=== PATIENT | female | born 1960 | race Caucasian/White ===

== ENCOUNTER 2020-05-29 14:00 | Outpatient (RCR) | payer MEDICAID, SELFPAY | END 2020-05-31 15:22 | disposition other institution (70) | LOC: HO.PT 14:00 | PROVIDERS: Visit Provider Nurse Practitioner Family | DX: M54.2 Cervicalgia (principal); M79.601 Pain in right arm; R51.9 Headache, unspecified | CPT/HCPCS: 97110; 97140 ==

== ENCOUNTER 2020-07-18 14:00 | Outpatient (RCR) | payer MEDICAID, SELFPAY ==
[2020-06-14 11:06] VITALS: BP 139/77; PULSE 60
== END 2020-07-18 15:35 | disposition other institution (70) ==
LOC: HO.PT 14:00
PROVIDERS: Visit Provider Internal Medicine
DX: M54.5 Low back pain (principal); Z98.1 Arthrodesis status
CPT/HCPCS: 97110; 97140; 97161

== ENCOUNTER 2020-08-07 15:22 | Emergency (ER) | payer MEDICAID, SELFPAY ==
[2020-08-07 15:37] VITALS: PULSE 77; RESP 20; TEMP 36.4; O2SAT 100; BMI 55.8
[2020-08-07 17:57] LABS: Glucose, Whole Blood 342 mg/dL (60-115)
[2020-08-07 19:59] VITALS: BP 165/86; PULSE 61; RESP 15; O2SAT 98
[2020-08-07 20:01] LABS: Glucose, Whole Blood 258 mg/dL (60-115)
[2020-08-07 20:13] LABS: MANUAL DIFF FLAG NO
[2020-08-07 20:18] LABS: Basophils Percent Auto 0.5 % (0-2); Eosinophils Absolute Auto 0.2 X10*3/uL (0.0-0.4); Eosinophils Percent Auto 2.6 % (0-4); Hematocrit 41.8 % (37-47); Hemoglobin 13.5 g/dl (12.0-16.0); Imm Gran Abs Auto 0.01 X10*3/uL (0.00-0.03); Imm Gran Pct Auto 0.1 % (0.0-0.4); Lymphocytes Absolute Auto 3.9 X10*3/uL (1.2-4.9); Lymphocytes Percent Auto 47.7 % (20-40); Mean Corpuscular HGB Conc 32.3 g/dl (31.0-35.0); Mean Corpuscular Hemoglobin 28.5 pg (27.0-33.0); Mean Corpuscular Volume 88.4 fL (80-98); Mean Platelet Volume 12.3 fL (9.4-12.3); Monocytes Absolute Auto 0.6 X10*3/uL (0.1-1.2); Monocytes Percent Auto 7.4 % (2-11); Neutrophils Absolute Auto 3.4 X10*3/uL (2.0-8.3); Neutrophils Percent Auto 41.7 % (45-73); Platelet Count 253 X10*3/uL (160-400); Red Blood Count 4.73 X10*6/uL (4.20-5.50); Red Cell Distribution Width 12.7 % (11.0-16.0); White Blood Count 8.2 X10*3/uL (4.8-10.8)
[2020-08-07 20:41] LABS: Anion Gap 14 (12-20); Blood Urea Nitrogen 9 mg/dL (9-16); Calcium 8.9 mg/dL (8.4-10.2); Carbon Dioxide 27 mmol/L (22-29); Chloride 99 mmol/L (96-108); Creatinine Clr Calc Pharmacy 113.2; Estimated Glomerular Filt Rate > 60; Glucose Random 295 mg/dL (60-115); Sodium 136 mmol/L (135-145)
--- NOTE | 2020-08-07 21:12 | XR_ITS ---
EXAMINATION: XR CHEST CLINICAL INFORMATION: 60-year-old female with left posterior back pain. COMPARISON: Chest x-ray 09/25/2018 TECHNIQUE: Frontal view of the chest was obtained. FINDINGS: Cardiac silhouette is normal in size. The lungs are well aerated. There is no lobar consolidation. No pleural effusion or pneumothorax. Mild to moderate degenerative changes of the spine. XR/XR chest 1V IMPRESSION: Stable examination demonstrating no acute pulmonary pathology.
--- NOTE | 2020-08-07 21:13 | ED_ITS ---
HPI - General Adult General Chief complaint: Recheck/Abnormal Lab/Rx Stated complaint: high sugar Time Seen by Provider: 08/07/20 20:58 Source: patient Mode of arrival: ambulatory Limitations: no limitations History of Present Illness HPI narrative: Patient comes emergency room complaining of high blood sugar. Patient states she is asymptomatic. The patient states she was seen by her primary care physician earlier this week, she was told that her blood sugar was in the 400s. Patient is known to be type 2 diabetic, tries to control it with diet and exercise and metformin. Patient states she is not fully compliant with her metformin because it blows her stomach, metformin approximately 4 times a week. Patient states she has never had this sugars this high. Patient denies blurry vision, denies increase in thirst/urination. MD complaint: High blood sugar Related Data Previous Rx's Medication Instructions Recorded glimepiride 1 mg PO QAM #14 tab 08/07/20 Allergies Allergy/AdvReac Type Severity Reaction Status Date / Time morphine [MORPHINE] Allergy Intermediate VOMITING Unverified 04/26/20 15:45 lisinopril [LISINOPRIL] Allergy Unknown COUGH DRY Unverified 04/26/20 15:45 Motrin Allergy Unknown Uncoded 09/15/19 00:00 SEAFOOD Allergy Unknown FACIAL Uncoded 04/26/20 15:45 SWELLING Review of Systems Review of Systems: Constitutional : No Weight loss, No Fever, No Chills, No Night Sweats, No Fatigue, No Malaise ENT/Mouth : No Hearing loss, No Ear Pain, No Nasal Congestion, No Sinus Pain, No Hoarseness, No sore throat, No Rhinorrhea, No Swallowing Difficulty Eyes: No Eye Pain, No Swelling, No Redness, No Foreign Body, No Discharge, No Vision Changes Cardiovascular : No Chest Pain, No SOB, No Dyspnea on Exertion, No Orthopnea, No Edema, No Palpitations Respiratory : No Cough, No Sputum, No Wheezing, No Smoke Exposure, No Dyspnea Gastrointestinal : No Nausea, No Vomiting, No Diarrhea, No Constipation, No abdominal Pain, No Hematochezia, No Melena Genitourinary : no irregular bleeding, No Dysuria, No Urinary Frequency, No Hematuria, No Urinary Incontinence, No Urgency, No Flank Pain, No Urinary Flow Changes, No Hesitancy Musculoskeletal : No joint pain, No Myalgias, No Joint Swelling Skin : No Skin Lesions, No rash Neuro : No Weakness, No Numbness, No Paresthesias, No Loss of Consciousness, No Dizziness, No Headache Psych : No Anxiety/Panic, No Depression, No SI/HI/AH/VH, No Social Issues, Heme/Lymph: No Bruising, No Bleeding,No Lymphadenopathy Endocrine : No Polyuria, No Polydipsia, No Temperature Intolerance PMF Past Medical History Medical History Asthma Diabetes mellitus, type 2 Hypertension Social History Social History Alcohol intake: unknown Smoking Status: Unknown if ever smoked Use of substances other than those prescribed or required for medical reasons: No Advance Directives: Yes Advance Directives on File: Yes Advance Directives Date on File: 05/11/20 Physical Exam Vital Signs: Vital Signs: Last Vital Signs Temp 97.6 F 08/07/20 15:37 Pulse 59 08/07/20 22:00 Resp 15 08/07/20 22:00 BP 156/75 H 08/07/20 22:00 Pulse Ox 98 08/07/20 22:00 Body Mass Index 55.8 Appearance: Alert. Oriented X3. No acute distress. Eyes: Pupils equal, round and reactive to light. ENT: Pharynx normal. Neck: Normal inspection. Neck supple. No lymph nodes noted. No crepitus CVS: Normal heart rate and rhythm. Pulses normal. Normal S1 and S2 Respiratory: No respiratory distress. Breath sounds normal. No Wheezing. No rales Abdomen: Soft and nontender. No rigidity. No distention. good BS x4 Skin: Skin warm and dry. Normal skin color. Normal skin turgor. Extremities: No lower extremity edema. No lower extremity edema. No Lacerations. No Rash Neuro: Oriented X 3. No motor deficit. No sensory deficit. Moving all extermities. No slurred speech. Course Course Course Narrative: Patient was getting her fluids, patient states that she started feeling short of breath, having an asthma exacerbation which she has been having. Albuterol nebulization was provided. Wheezing is minimal, no steroids indicated at this time Patient's blood glucose 229, no longer having asthma exacerbation. Patient is not compliant with metformin due to the side effects. Discussed with the patient starting any medication oral, patient agrees Medical Decision Making Lab Data Result diagrams: 08/07/20 20:06 08/07/20 20:06 Labs: Lab Results 08/07/20 08/07/20 08/07/20 Range/Units 15:43 19:58 20:06 WBC 8.2 (4.8-10.8) X10*3/uL RBC 4.73 (4.20-5.50) X10*6/uL Hgb 13.5 (12.0-16.0) g/dl Hct 41.8 (37-47) % MCV 88.4 (80-98) fL MCH 28.5 (27.0-33.0) pg MCHC 32.3 (31.0-35.0) g/dl RDW 12.7 (11.0-16.0) % Plt Count 253 (160-400) X10*3/uL MPV 12.3 (9.4-12.3) fL Immature Gran % (Auto) 0.1 (0.0-0.4) % Neut % (Auto) 41.7 L (45-73) % Lymph % (Auto) 47.7 H (20-40) % [place] % (Auto) 7.4 (2-11) % Eos % (Auto) 2.6 (0-4) % Baso % (Auto) 0.5 (0-2) % Lymph # (Auto) 3.9 (1.2-4.9) X10*3/uL [place] # (Auto) 0.6 (0.1-1.2) X10*3/uL Eos # (Auto) 0.2 (0.0-0.4) X10*3/uL Baso # (Auto) 0.0 (0.0-0.2) X10*3/uL Abs Immat Gran (auto) 0.01 (0.00-0.03) X10*3/uL Absolute Neuts (auto) 3.4 (2.0-8.3) X10*3/uL Absolute Nucleated RBC 0.000 (0.0-0.012) X10*3/uL Nucleated RBC % (auto) 0.0 (0.0-0.2) /100WBC Sodium (135-145) mmol/L Potassium (3.3-5.1) mmol/l Chloride (96-108) mmol/L Carbon Dioxide (22-29) mmol/L Anion Gap (12-20) BUN (9-16) mg/dL Creatinine (0.5-1.4) mg/dL Estim Creat Clear Calc Estimated GFR POC Glucose 342 H 258 H (60-115) mg/dL Random Glucose (60-115) mg/dL Calcium (8.4-10.2) mg/dL Total Bilirubin (0.0-1.0) mg/dL Direct Bilirubin (0.0-0.5) mg/dL AST (5-31) U/L ALT (0-31) U/L Alkaline Phosphatase (39-117) U/L Total Protein (6.5-8.0) g/dL Albumin (3.5-5.0) g/dL 08/07/20 08/07/20 08/07/20 Range/Units 20:06 20:06 22:41 WBC (4.8-10.8) X10*3/uL RBC (4.20-5.50) X10*6/uL Hgb (12.0-16.0) g/dl Hct (37-47) % MCV (80-98) fL MCH (27.0-33.0) pg MCHC (31.0-35.0) g/dl RDW (11.0-16.0) % Plt Count (160-400) X10*3/uL MPV (9.4-12.3) fL Immature Gran % (Auto) (0.0-0.4) % Neut % (Auto) (45-73) % Lymph % (Auto) (20-40) % [place] % (Auto) (2-11) % Eos % (Auto) (0-4) % Baso % (Auto) (0-2) % Lymph # (Auto) (1.2-4.9) X10*3/uL [place] # (Auto) (0.1-1.2) X10*3/uL Eos # (Auto) (0.0-0.4) X10*3/uL Baso # (Auto) (0.0-0.2) X10*3/uL Abs Immat Gran (auto) (0.00-0.03) X10*3/uL Absolute Neuts (auto) (2.0-8.3) X10*3/uL Absolute Nucleated RBC (0.0-0.012) X10*3/uL Nucleated RBC % (auto) (0.0-0.2) /100WBC Sodium 136 137 (135-145) mmol/L Potassium 4.0 4.1 (3.3-5.1) mmol/l Chloride 99 99 (96-108) mmol/L Carbon Dioxide 27 27 (22-29) mmol/L Anion Gap 14 15 (12-20) BUN 9 10 (9-16) mg/dL Creatinine 0.81 0.82 (0.5-1.4) mg/dL Estim Creat Clear Calc 113.2 111.9 Estimated GFR > 60 > 60 POC Glucose 229 H (60-115) mg/dL Random Glucose 295 H 301 H (60-115) mg/dL Calcium 8.9 9.1 (8.4-10.2) mg/dL Total Bilirubin 0.6 (0.0-1.0) mg/dL Direct Bilirubin 0.2 (0.0-0.5) mg/dL AST 27 (5-31) U/L ALT 31 (0-31) U/L Alkaline Phosphatase 91 (39-117) U/L Total Protein 7.0 (6.5-8.0) g/dL Albumin 4.4 (3.5-5.0) g/dL Discharge Plan Discharge Clinical Impression: Acute hyperglycemia Asthma exacerbation Qualifiers: Asthma severity: unspecified severity Asthma persistence: unspecified Qualified Code(s): J45.901 - Unspecified asthma with (acute) exacerbation Patient Disposition: Home, Self-Care Instructions: Diabetic Hyperglycemia (ED), Diabetes and Exercise (ED) Additional Instructions: You need to have close follow-up with her primary care physician after starting this new medication for diabetes. Please follow-up with your primary care physician tomorrow. If you have any worsening or new symptoms, please return to the emergency room or call 911 Prescriptions: New glimepiride 1 mg tablet 1 mg PO QAM Qty: 14 RF: 0
[2020-08-07] MEDS: 0.9 % Sodium Chloride 1,000 ML 999 ML IVCONT (21:31)
[2020-08-07 21:32] VITALS: BP 157/81; PULSE 63; RESP 16; O2SAT 99
[2020-08-07] MEDS: Albuterol Sulfate (0.083%) 2.5 MG/3 ML VIAL.NEB INHALE (21:59)
[2020-08-07 22:00] VITALS: BP 156/75; PULSE 59; PULSE 63; RESP 15; O2SAT 98; O2SAT 99
[2020-08-07 22:46] LABS: Glucose, Whole Blood 229 mg/dL (60-115)
[2020-08-08 00:32] LABS: Acetone, serum QL Negative (Negative)
[2020-08-08 00:37] LABS: Alanine Aminotransferase 31 U/L (0-31); Albumin Level 4.4 g/dL (3.5-5.0); Alkaline Phosphatase 90 U/L (39-117); Aspartate Amino Transferase 27 U/L (5-31); Bilirubin Direct 0.2 mg/dL (0.0-0.5); Bilirubin Total 0.6 mg/dL (0.0-1.0)
== END 2020-08-07 23:46 | disposition home or self-care (01) ==
PROVIDERS: Emergency Provider Emergency Medicine
DX: E11.65 Type 2 diabetes mellitus with hyperglycemia (principal); J45.901 Unspecified asthma with (acute) exacerbation; I10 Essential (primary) hypertension; Z79.899 Other long term (current) drug therapy; Z79.84 Long term (current) use of oral hypoglycemic drugs
CPT/HCPCS: 36415; 71045; 80048; 80076; 82009; 82947; 85025; 94640; 96360; 99284

== ENCOUNTER 2020-11-06 14:00 | Outpatient (RCR) | payer MEDICAID, SELFPAY | END 2020-11-06 14:59 | disposition other institution (70) | LOC: HO.PT 14:00 | PROVIDERS: PCP Internal Medicine; Visit Provider Internal Medicine | DX: M54.12 Radiculopathy, cervical region (principal) | CPT/HCPCS: 97110; 97112; 97140; 97161 ==

== ENCOUNTER 2020-11-23 15:46 | Emergency (ER) | payer MEDICAID, SELFPAY ==
--- NOTE | ~2020-11-23 | CT_ITS ---
EXAMINATION: CT ABDOMEN AND PELVIS WITHOUT CONTRAST CLINICAL INFORMATION: Right-sided flank pain COMPARISON: None TECHNIQUE: Multidetector volumetric imaging was performed from the superior aspect of the liver through the pubic symphysis. Sagittal and coronal reformatted images were obtained on the technologist's workstation. This CT examination was performed using dose optimization techniques as appropriate, variously including the following: *Automated exposure control *Adjustment of mA and/or kV according to patient size (this includes techniques or standardized protocols for targeted exams where dose is matched to indication/reason for exam; i.e. extremities or head) *Use of iterative reconstruction technique DLP: 533 mGy-cm FINDINGS: LUNG BASES: Tree-in-bud changes are present posteriorly in the left lower lobe consistent with small airway/inflammatory disease. LIVER, GALLBLADDER, AND BILIARY TREE: The liver is normal in size, shape, and attenuation. No focal hepatic lesion or biliary ductal dilatation is present. The gallbladder is contracted but otherwise unremarkable with no evidence of radiopaque gallstones, gallbladder wall thickening, or obvious pericholecystic inflammatory changes. PANCREAS: Unremarkable. SPLEEN: Unremarkable. A tiny splenule is seen. ADRENAL GLANDS: Unremarkable. KIDNEYS AND URETERS: The kidneys are normal in size, shape, and attenuation. A large right renal pelvic stone present measuring 1.8 x 1.0 x 1.7 cm. The stone measures 1026 Hounsfield units and is 7.7 cm from the posterior axillary line. There is a tiny punctate calcification in the bladder wall measuring possibly 1 mm in size. It is possible that this could be a distal ureteral stone although it appears a bit too low in the ureter is not dilated. No Hydronephrosis, hydroureter, or other calculi seen. No perinephric stranding. BLADDER: Unremarkable. GASTROINTESTINAL TRACT: A small hiatal hernia is present. Diverticular changes are present in the colon without diverticulitis. The small and large bowel are unremarkable. The appendix is unremarkable. ABDOMINAL WALL: No significant hernia is appreciated. LYMPH NODES: Normal. VASCULAR: Calcific atherosclerotic changes present without aneurysm PELVIC VISCERA: Surgically absent OSSEOUS STRUCTURES: Extensive prior lumbar surgery with fixation from L3 through S1 with interbody distal physis at each level along with a bone graft posteriorly. CT/CT abdomen pelvis wo con IMPRESSION: 1. Large right renal pelvic stone. 2. Questionable tiny punctate density at right UVJ 3. Incidental note made of tree-in-bud inflammatory changes left lung base, small hiatal hernia, postoperative changes in the spine and colonic diverticulosis.
[2020-11-23 15:49] VITALS: BP 153/74; PULSE 75; RESP 18; TEMP 37; O2SAT 100; BMI 24.5
--- NOTE | 2020-11-23 17:16 | ED_ITS ---
HPI - Abdominal Pain General Chief Complaint: Abdominal Pain Stated Complaint: Flank pain Source: patient Mode of arrival: ambulatory Limitations: no limitations History of Present Illness HPI narrative: 60-year-old female with past medical history of kidney stones, asthma, type 2 diabetes, and hypertension presents with several days of right- sided flank pain with hematuria. States it feels like her prior kidney stone. She presents to the emergency department with a note from [facility] from April of 2020 indicating a 1 cm stone to the right kidney. She does not report any fevers or chills, denies chest pain and pressure, palpitations, shortness of breath, shortness of breath on exertion, abdominal distention, nausea, vomiting, diarrhea, constipation, and edema. Related Data Previous Rx's Medication Instructions Recorded glimepiride 1 mg PO QAM #14 tab 08/07/20 cefuroxime axetil 500 mg PO Q12H 10 Days #20 tab 11/23/20 ketorolac 10 mg PO Q6H 5 Days #20 tab 11/23/20 phenazopyridine [Pyridium] 200 mg PO TID PRN #6 tab 11/23/20 Allergies Allergy/AdvReac Type Severity Reaction Status Date / Time morphine [MORPHINE] Allergy Intermediate VOMITING Unverified 04/26/20 15:45 lisinopril [LISINOPRIL] Allergy Unknown COUGH DRY Unverified 04/26/20 15:45 Motrin Allergy Unknown Uncoded 09/15/19 00:00 SEAFOOD Allergy Unknown FACIAL Uncoded 04/26/20 15:45 SWELLING Review of Systems Review of Systems Constitutional: No Fever, No Chills ENT/Mouth: No sore throat Eyes: No Eye Pain, No Swelling, No Redness Cardiovascular: No Chest Pain, No SOB Respiratory: No Cough, No Sputum, No Wheezing Gastrointestinal: positive Nausea, no Vomiting, No Diarrhea, positive abdominal pain Genitourinary: No Dysuria, no urinary frequency, no Hematuria, positive Flank Pain, no hesitancy Musculoskeletal: No joint pain, No Myalgias Skin: No Skin Lesions, No rash Neuro: No Weakness, No Numbness, No Headache Psych: No Anxiety/Panic, No Depression Heme/Lymph: No Bruising, No Lymphadenopathy Endocrine: No Polyuria, No Polydipsia Yes all other systems are reviewed and are negative Physical Exam Vital Signs: Vital Signs: Last Vital Signs Temp 98.3 F 11/23/20 17:19 Pulse 62 11/23/20 21:51 Resp 18 11/23/20 21:51 BP 149/80 H 11/23/20 21:51 Pulse Ox 100 11/23/20 20:31 Body Mass Index 24.5 Appearance: Alert. Oriented X3. Mild distress. Eyes: Pupils equal, round and reactive to light. ENT: Pharynx normal. Neck: Normal inspection. Neck supple. CVS: Normal heart rate and rhythm. Pulses normal. Respiratory: No respiratory distress. Breath sounds normal. Abdomen: Soft and tender to palpation to the right upper quadrant, positive CVA tenderness on the right side. Skin: Skin warm and dry. Normal skin color. Normal skin turgor. Extremities: No lower extremity edema. Moves all extremities against resistance, strength 5/5. Neuro: No motor deficit. No sensory deficit. Cranial nerves 2-12 intact, no focal neural deficits. Course Course Course Narrative: 60-year-old female with past medical history of kidney stone presents with right flank pain. Will order CT scan, CBC, Chem 7, urinalysis. Patient also request to speak to case management, states that she lives near drug dealers, and is having a difficult time managing stress. She does not report suicidal ideation, homicidal ideation, or any other concerning psychiatric symptoms. Case management discussed living situation with patient, not much can be offered at this time except for the suggestion of moving. Urinalysis indicates UTI, CT scan shows kidney stone without pylori or hydro nephrosis. Stone is too large to pass, will refer to Urology. Patient prefers a female provider, will refer to [facility] as they do have several female urologist on staff. Patient verbalized understanding of and agrees to plan of care discharge home. MDM - Abdominal Pain Differential Diagnosis Differential diagnosis: Likely abdominal pain, acute appendicitis and calculus of kidney Medical Records Attestation: I reviewed the patient's medical records. Lab Data Attestation: I reviewed the patient's lab results. Result diagrams: 11/23/20 17:42 11/23/20 17:42 Labs: Lab Results 11/23/20 11/23/20 11/23/20 Range/Units 17:42 17:42 17:48 WBC 9.1 (4.8-10.8) X10*3/uL RBC 4.64 (4.20-5.50) X10*6/uL Hgb 13.4 (12.0-16.0) g/dl Hct 41.2 (37-47) % MCV 88.8 (80-98) fL MCH 28.9 (27.0-33.0) pg MCHC 32.5 (31.0-35.0) g/dl RDW 13.2 (11.0-16.0) % Plt Count 255 (160-400) X10*3/uL MPV 12.1 (9.4-12.3) fL Immature Gran % (Auto) 0.1 (0.0-0.4) % Neut % (Auto) 50.3 (45-73) % Lymph % (Auto) 39.8 (20-40) % [place] % (Auto) 7.1 (2-11) % Eos % (Auto) 2.2 (0-4) % Baso % (Auto) 0.5 (0-2) % Lymph # (Auto) 3.6 (1.2-4.9) X10*3/uL [place] # (Auto) 0.7 (0.1-1.2) X10*3/uL Eos # (Auto) 0.2 (0.0-0.4) X10*3/uL Baso # (Auto) 0.1 (0.0-0.2) X10*3/uL Abs Immat Gran (auto) 0.01 (0.00-0.03) X10*3/uL Absolute Neuts (auto) 4.6 (2.0-8.3) X10*3/uL Absolute Nucleated RBC 0.000 (0.0-0.012) X10*3/uL Nucleated RBC % (auto) 0.0 (0.0-0.2) /100WBC Hold Blue Top SEE NOTE Sodium 145 (135-145) mmol/L Potassium 3.9 (3.3-5.1) mmol/L Chloride 106 (96-108) mmol/L Carbon Dioxide 30 H (22-29) mmol/L Anion Gap 13 (12-20) BUN 15 D (9-16) mg/dL Creatinine 0.77 (0.5-1.4) mg/dL Estim Creat Clear Calc 71.8 Estimated GFR > 60 Random Glucose 85 D (60-115) mg/dL Calcium 9.6 D (8.4-10.2) mg/dL Total Bilirubin 0.6 (0.0-1.0) mg/dL Direct Bilirubin 0.2 (0.0-0.5) mg/dL AST 19 (5-31) U/L ALT 15 (0-31) U/L Alkaline Phosphatase 66 D (39-117) U/L Total Protein 6.9 (6.5-8.0) g/dL Albumin 4.6 (3.5-5.0) g/dL Lipase 51 (8-78) U/L Urine Color Urine Appearance Urine pH (5.0-8.0) Ur Specific [place] (1.005-1.025) Urine Protein (NEG-TRACE) MG/DL Urine Glucose (UA) (NEG) MG/DL Urine Ketones (NEG) MG/DL Urine Blood (NEG) Urine Nitrite (NEG) Ur Leukocyte Esterase (NEG) Urine RBC (0) /HPF Urine WBC (0-4) /HPF Ur Squamous Epith Cells /LPF Urine Bacteria /LPF 11/23/20 Range/Units 17:48 WBC (4.8-10.8) X10*3/uL RBC (4.20-5.50) X10*6/uL Hgb (12.0-16.0) g/dl Hct (37-47) % MCV (80-98) fL MCH (27.0-33.0) pg MCHC (31.0-35.0) g/dl RDW (11.0-16.0) % Plt Count (160-400) X10*3/uL MPV (9.4-12.3) fL Immature Gran % (Auto) (0.0-0.4) % Neut % (Auto) (45-73) % Lymph % (Auto) (20-40) % [place] % (Auto) (2-11) % Eos % (Auto) (0-4) % Baso % (Auto) (0-2) % Lymph # (Auto) (1.2-4.9) X10*3/uL [place] # (Auto) (0.1-1.2) X10*3/uL Eos # (Auto) (0.0-0.4) X10*3/uL Baso # (Auto) (0.0-0.2) X10*3/uL Abs Immat Gran (auto) (0.00-0.03) X10*3/uL Absolute Neuts (auto) (2.0-8.3) X10*3/uL Absolute Nucleated RBC (0.0-0.012) X10*3/uL Nucleated RBC % (auto) (0.0-0.2) /100WBC Hold Blue Top Sodium (135-145) mmol/L Potassium (3.3-5.1) mmol/L Chloride (96-108) mmol/L Carbon Dioxide (22-29) mmol/L Anion Gap (12-20) BUN (9-16) mg/dL Creatinine (0.5-1.4) mg/dL Estim Creat Clear Calc Estimated GFR Random Glucose (60-115) mg/dL Calcium (8.4-10.2) mg/dL Total Bilirubin (0.0-1.0) mg/dL Direct Bilirubin (0.0-0.5) mg/dL AST (5-31) U/L ALT (0-31) U/L Alkaline Phosphatase (39-117) U/L Total Protein (6.5-8.0) g/dL Albumin (3.5-5.0) g/dL Lipase (8-78) U/L Urine Color STRAW Urine Appearance CLEAR Urine pH 6.5 (5.0-8.0) Ur Specific Mon[place] <= 1.005 (1.005-1.025) Urine Protein NEG (NEG-TRACE) MG/DL Urine Glucose (UA) NEG (NEG) MG/DL Urine Ketones NEG (NEG) MG/DL Urine Blood 2+ H (NEG) Urine Nitrite NEG (NEG) Ur Leukocyte Esterase TRACE H (NEG) Urine RBC 5-9 H (0) /HPF Urine WBC 0-2 (0-4) /HPF Ur Squamous Epith Cells NONE /LPF Urine Bacteria 1+ /LPF Imaging Data CT scan - abdomen: Attestation: I personally reviewed and interpreted this imaging study as follows: Radiologist's impression: EXAMINATION: CT ABDOMEN AND PELVIS WITHOUT CONTRAST CLINICAL INFORMATION: Right-sided flank pain COMPARISON: None TECHNIQUE: Multidetector volumetric imaging was performed from the superior aspect of the liver through the pubic symphysis. Sagittal and coronal reformatted images were obtained on the technologist's workstation. This CT examination was performed using dose optimization techniques as appropriate, variously including the following: *Automated exposure control *Adjustment of mA and/or kV according to patient size (this includes techniques or standardized protocols for targeted exams where dose is matched to indication/reason for exam; i.e. extremities or head) *Use of iterative reconstruction technique DLP: 533 mGy-cm FINDINGS: LUNG BASES: Tree-in-bud changes are present posteriorly in the left lower lobe consistent with small airway/inflammatory disease. LIVER, GALLBLADDER, AND BILIARY TREE: The liver is normal in size, shape, and attenuation. No focal hepatic lesion or biliary ductal dilatation is present. The gallbladder is contracted but otherwise unremarkable with no evidence of radiopaque gallstones, gallbladder wall thickening, or obvious pericholecystic inflammatory changes. PANCREAS: Unremarkable. SPLEEN: Unremarkable. A tiny splenule is seen. ADRENAL GLANDS: Unremarkable. KIDNEYS AND URETERS: The kidneys are normal in size, shape, and attenuation. A large right renal pelvic stone present measuring 1.8 x 1.0 x 1.7 cm. The stone measures 1026 Hounsfield units and is 7.7 cm from the posterior axillary line. There is a tiny punctate calcification in the bladder wall measuring possibly 1 mm in size. It is possible that this could be a distal ureteral stone although it appears a bit too low in the ureter is not dilated. No Hydronephrosis, hydroureter, or other calculi seen. No perinephric stranding. BLADDER: Unremarkable. GASTROINTESTINAL TRACT: A small hiatal hernia is present. Diverticular changes are present in the colon without diverticulitis. The small and large bowel are unremarkable. The appendix is unremarkable. ABDOMINAL WALL: No significant hernia is appreciated. LYMPH NODES: Normal. VASCULAR: Calcific atherosclerotic changes present without aneurysm PELVIC VISCERA: Surgically absent OSSEOUS STRUCTURES: Extensive prior lumbar surgery with fixation from L3 through S1 with interbody distal physis at each level along with a bone graft posteriorly. CT/CT abdomen pelvis wo con IMPRESSION: 1. Large right renal pelvic stone. 2. Questionable tiny punctate density at right UVJ 3. Incidental note made of tree-in-bud inflammatory changes left lung base, small hiatal hernia, postoperative changes in the spine and colonic diverticulosis. Discharge Plan Discharge Clinical Impression: Calculus of kidney, UTI (urinary tract infection) Patient Disposition: Home, Self-Care Instructions: Kidney Stones (ED), Urinary Tract Infection in Women (ED), Flank Pain (ED) Additional Instructions: You were evaluated for right flank pain. You have a large kidney stone in the right kidney. There is no indication of infection in this kidney or obstruction. Please follow-up with Urology. The number for [facility] urology group is [phone]. Please ask for a female provider. We prescribed Toradol, please take this medication as directed. Do not take Aleve or Motrin with this medication. Motrin is the same medication as ibuprofen and Advil. We are treating for urinary tract infection with cefuroxime. Please take this medication as directed. Complete the entire course of this medicine. We prescribed Pyridium to help with bladder spasms. This medication will turn your urine bright orange, this is a normal side effect of this medication. Thank you for choosing this emergency department for evaluation. Please follow-up with primary care physician as needed. Return to the emergency department for any new, concerning, or worsening symptoms. Prescriptions: New ketorolac 10 mg tablet 10 mg PO Q6H 5 Days Qty: 20 RF: 0 cefuroxime axetil 500 mg tablet 500 mg PO Q12H 10 Days Qty: 20 RF: 0 phenazopyridine [Pyridium] 200 mg tablet 200 mg PO TID PRN (Reason: pain) Qty: 6 RF: 0 No Action glimepiride 1 mg tablet 1 mg PO QAM Qty: 14 RF: 0 Interventions: ED Discharge Assessment Last Done: 11/23/20 21:59 Discharge Date/Time: 11/23/20 22:00 [facility] Past Medical History Attestation statement: The following information was validated with the patient. Source: old records reviewed Medical History Asthma Diabetes mellitus, type 2 Hypertension Social History Social History Alcohol intake: never Smoking Status: Never smoker Use of substances other than those prescribed or required for medical reasons: No Advance Directives: Yes Advance Directives on File: Yes Advance Directives Date on File: 05/11/20
[2020-11-23 17:19] VITALS: BP 148/74; PULSE 57; RESP 17; TEMP 36.8; O2SAT 99
[2020-11-23 17:50] LABS: MANUAL DIFF FLAG NO
[2020-11-23 17:55] LABS: Basophils Absolute Auto 0.1 X10*3/uL (0.0-0.2); Basophils Percent Auto 0.5 % (0-2); Eosinophils Absolute Auto 0.2 X10*3/uL (0.0-0.4); Eosinophils Percent Auto 2.2 % (0-4); Hematocrit 41.2 % (37-47); Hemoglobin 13.4 g/dl (12.0-16.0); Imm Gran Abs Auto 0.01 X10*3/uL (0.00-0.03); Imm Gran Pct Auto 0.1 % (0.0-0.4); Lymphocytes Absolute Auto 3.6 X10*3/uL (1.2-4.9); Lymphocytes Percent Auto 39.8 % (20-40); Mean Corpuscular HGB Conc 32.5 g/dl (31.0-35.0); Mean Corpuscular Hemoglobin 28.9 pg (27.0-33.0); Mean Corpuscular Volume 88.8 fL (80-98); Mean Platelet Volume 12.1 fL (9.4-12.3); Monocytes Absolute Auto 0.7 X10*3/uL (0.1-1.2); Monocytes Percent Auto 7.1 % (2-11); Neutrophils Absolute Auto 4.6 X10*3/uL (2.0-8.3); Neutrophils Percent Auto 50.3 % (45-73); Platelet Count 255 X10*3/uL (160-400); Red Blood Count 4.64 X10*6/uL (4.20-5.50); Red Cell Distribution Width 13.2 % (11.0-16.0); White Blood Count 9.1 X10*3/uL (4.8-10.8)
[2020-11-23] MEDS: 0.9 % Sodium Chloride 1,000 ML 999 ML IVCONT (17:55)
--- NOTE | 2020-11-23 17:57 | PC.NURSE ---
Pt alert and oriented, skin pink and warm, BS active x4. Pt reports left flank pain that has being going on x1 month; has taken multiple OTC pain meds with no effect. Pt reports having kidney stones in the past and feels like she currently has another one. Pt awaiting CT scan.
[2020-11-23 18:01] LABS: Glucose Urine UA NEG (NEG); Leukocyte Esterase Urine TRACE (NEG); Nitrite Urine NEG (NEG); PH 6.5 (5.0-8.0); Specific Gravity - Urine <= 1.005 (1.005-1.025); UACC Culture Trigger YES; Urine Blood 2+ (NEG); Urine Ketones NEG (NEG); Urine Protein NEG (NEG-TRACE)
[2020-11-23 18:04] LABS: Appearance Urine CLEAR; Color Urine STRAW
[2020-11-23 18:06] LABS: Bacteria Urine 1+ /LPF; WBC Urine 0-2 /HPF (0-4)
[2020-11-23 18:22] LABS: Alanine Aminotransferase 15 U/L (0-31); Albumin Level 4.6 g/dL (3.5-5.0); Alkaline Phosphatase 66 U/L (39-117); Anion Gap 13 (12-20); Aspartate Amino Transferase 19 U/L (5-31); Bilirubin Direct 0.2 mg/dL (0.0-0.5); Bilirubin Total 0.6 mg/dL (0.0-1.0); Blood Urea Nitrogen 15 mg/dL (9-16); Calcium 9.6 mg/dL (8.4-10.2); Carbon Dioxide 30 mmol/L (22-29); Chloride 106 mmol/L (96-108); Creatinine Clr Calc Pharmacy 71.8; Estimated Glomerular Filt Rate > 60; Glucose Random 85 mg/dL (60-115); Lipase 51 U/L (8-78); Potassium 3.9 mmol/L (3.3-5.1); Sodium 145 mmol/L (135-145); Total Protein 6.9 g/dL (6.5-8.0)
[2020-11-23 19:26] VITALS: BP 140/79; PULSE 60; RESP 16; O2SAT 100
[2020-11-23] MEDS: Ketorolac Tromethamine 30 MG/ML VIAL IVPUSH (20:09)
[2020-11-23 20:31] VITALS: BP 140/81; PULSE 63; RESP 16; O2SAT 100
--- NOTE | 2020-11-23 20:35 | MHC.CM.ED ---
CM reviewed and completed HCP per pt request. Uploaded in [employer] and [employer].
[2020-11-23 21:51] VITALS: BP 149/80; PULSE 62; RESP 18
[2020-11-23] MEDS: Phenazopyridine HCL 200 MG TABLET PO (21:53)
== END 2020-11-23 22:00 | disposition home or self-care (01) ==
PROVIDERS: Nurse Practitioner Family; Emergency Provider Internal Medicine; PCP Internal Medicine
DX: N20.0 Calculus of kidney (principal); N39.0 Urinary tract infection, site not specified; E11.9 Type 2 diabetes mellitus without complications; I10 Essential (primary) hypertension; J45.909 Unspecified asthma, uncomplicated; Z87.442 Personal history of urinary calculi; R93.5 Abnormal findings on diagnostic imaging of other abdominal regions, including retroperitoneum; K44.9 Diaphragmatic hernia without obstruction or gangrene; K57.30 Diverticulosis of large intestine without perforation or abscess without bleeding
CPT/HCPCS: 36415; 74176; 80048; 80076; 81001; 81003; 83690; 85025; 87086; 96361; 96374; 99284; J1885

== ENCOUNTER 2022-04-23 14:00 | Outpatient (RCR) | payer MEDICAID, SELFPAY | END 2022-04-23 15:38 | disposition home or self-care (01) | LOC: HO.PT 14:00 | PROVIDERS: PCP Internal Medicine; Visit Provider Internal Medicine | DX: M54.6 Pain in thoracic spine (principal) | CPT/HCPCS: 97110; 97140; 97162 ==

== ENCOUNTER 2022-06-17 12:32 | Emergency (ER) | payer MEDICAID, SELFPAY ==
[2022-06-17 13:25] VITALS: BP 177/83; PULSE 51; RESP 20; TEMP 36.4; O2SAT 100; BMI 24.0
--- NOTE | 2022-06-17 13:26 | ED_ITS ---
HPI - Asthma General Chief Complaint: Asthma Stated Complaint: Asthma [id number] Time Seen by Provider: 06/17/22 13:26 History of Present Illness HPI Narrative: patient with Asthma been complaining of shortness of breath for 1 month using her inhaler without much response yesterday patient noticed carbon monoxide alarm went off. No headache no nausea no vomiting no chest pain no leg swelling no other family member sick Related Data Previous Rx's Medication Instructions Recorded glimepiride 1 mg tablet 1 mg PO QAM #14 tabs 08/07/20 cefuroxime axetil 500 mg tablet 500 mg PO Q12H 10 days #20 tabs 11/23/20 ketorolac 10 mg tablet 10 mg PO Q6H 5 days #20 tabs 11/23/20 phenazopyridine 200 mg tablet 200 mg PO TID PRN pain 6 doses #6 11/23/20 (Pyridium) tabs albuterol sulfate 90 mcg/actuation 2 puff inhalation Q4-6H PRN 06/17/22 aerosol inhaler (ProAir HFA) shortness of breath or wheezing #8.5 grams prednisone 20 mg tablet 40 mg PO DAILY #10 tabs 06/17/22 Allergies Allergy/AdvReac Type Severity Reaction Status Date / Time morphine [MORPHINE] Allergy Intermediate VOMITING Unverified 04/26/20 15:45 lisinopril [LISINOPRIL] Allergy Unknown COUGH DRY Unverified 04/26/20 15:45 Motrin Allergy Unknown Uncoded 09/15/19 00:00 SEAFOOD Allergy Unknown FACIAL Uncoded 04/26/20 15:45 SWELLING Review of Systems Review of Systems: Yes all other systems are reviewed and are negative PMFSH Past Medical History Medical History Asthma Diabetes mellitus, type 2 Hypertension Social History Social History Alcohol intake: never Advance Directives: Yes Advance Directives on File: Yes Advance Directives Date on File: 11/23/20 Physical Exam 2 Vital Signs: Vital Signs: Last Vital Signs Temp 97.6 F 06/17/22 13:25 Pulse 51 06/17/22 13:25 Resp 20 06/17/22 13:25 BP 177/83 H 06/17/22 13:25 Pulse Ox 100 06/17/22 13:25 O2 Del Method 06/17/22 13:25 BMI result Body Mass Index 24.0 Appearance: Alert. Oriented X3. No acute distress. ENT: Pharynx normal. Oral Mucosa moist Neck: Normal inspection. Neck supple. CVS: Normal heart rate and rhythm. Pulses normal. Respiratory: No respiratory distress. Equal air entry bilateral, prolonged expiration Abdomen: Soft and nontender. Bowel sounds are present, Skin: Skin warm and dry. Normal skin color. Normal skin turgor. Extremities: No lower extremity edema. No calf tenderness Neuro: Oriented X 3. MDM - Asthma MDM Narrative Medical decision making narrative: Patient with asthma with increased cough and wheezing vitals stable for discharge patient home on prednisone. Discharge Plan Discharge Clinical Impression: Asthma Patient Disposition: Home, Self-Care Instructions: Asthma (ED) Additional Instructions: Use the inhaler that advice Prednisone as prescribed. Follow-up with your PCP Prescriptions: New albuterol sulfate [ProAir HFA] 90 mcg/actuation HFA aerosol inhaler 2 puff inhalation Q4-6H PRN (Reason: shortness of breath or wheezing) Qty: 8.5 0RF prednisone 20 mg tablet 40 mg PO DAILY Qty: 10 0RF No Action glimepiride 1 mg tablet 1 mg PO QAM Qty: 14 0RF Rx Instructions: administer with breakfast ketorolac 10 mg tablet 10 mg PO Q6H 5 Days Qty: 20 0RF cefuroxime axetil 500 mg tablet 500 mg PO Q12H 10 Days Qty: 20 0RF phenazopyridine [Pyridium] 200 mg tablet 200 mg PO TID PRN (Reason: pain) Qty: 6 0RF Interventions: ED Discharge Assessment Last Done: 06/17/22 13:34 Discharge Date/Time: 06/17/22 13:38
== END 2022-06-17 13:38 | disposition home or self-care (01) ==
PROVIDERS: Emergency Provider Internal Medicine; PCP Internal Medicine
DX: J45.909 Unspecified asthma, uncomplicated (principal)
CPT/HCPCS: 99282; 99283

== ENCOUNTER 2022-11-25 12:23 | Emergency (ER) | payer OTHER, SELFPAY ==
--- NOTE | ~2022-11-25 | US_ITS ---
EXAMINATION: LEFT LOWER EXTREMITY DEEP VENOUS ULTRASOUND CLINICAL INFORMATION: Left lower extremity pain. COMPARISON: None. TECHNIQUE: Duplex Doppler imaging with compression maneuvers were performed of the left lower extremity deep venous system. FINDINGS: The visualized common femoral, femoral and popliteal veins demonstrate normal compressibility and color flow without evidence of venous thrombosis. Visualized portions of the calf veins demonstrate normal color fill-in suggesting patency. There is no evidence of a Radford's cyst. US/US venous duplex LE LT IMPRESSION: No evidence of deep venous thrombosis involving the left lower extremity.
--- NOTE | ~2022-11-25 | XR_ITS ---
EXAMINATION: XR HIP, LEFT CLINICAL INFORMATION: Left hip pain COMPARISON: September 18, 2017 TECHNIQUE: AP chest and 2 views of the left hip. FINDINGS: AP film of the pelvis does not demonstrate any evidence of acute fracture or diastases. Hardware from previous lumbar spine surgery is seen including screws within S1. The sacroiliac joints appear unremarkable. The hip joint spaces are maintained. No destructive bony lesion appreciated. 2 views of the left hip do not demonstrate any evidence of acute fracture or dislocation. Joint spaces maintained. No significant degenerative spurring is seen. No lytic or sclerotic lesions identified. No evidence of femoral head collapse. XR/XR hip LT w PEL1V IMPRESSION: No significant bony abnormality of the left hip. Status post lumbar spine surgery.
[2022-11-25 13:03] VITALS: BP 176/88; PULSE 63; RESP 16; TEMP 36.6; O2SAT 100; BMI 23.8
--- NOTE | 2022-11-25 13:03 | ED.EXTPRO ---
HPI - Extremity Problem General Chief complaint: Extremity Problem <LUIS Blanchard Last Filed: 11/25/22 13:05> Stated complaint: Left Leg Pain No Injury <LUIS Blanchard Last Filed: 11/25/22 13:05> Time Seen by Provider: 11/25/22 13:34 <LUIS Blanchard Last Filed: 11/25/22 13:05> Source: patient <LUIS Lux Last Filed: 11/25/22 16:34> Mode of arrival: ambulatory <LUIS Lux Last Filed: 11/25/22 16:34> Limitations: no limitations <LUIS Lux Last Filed: 11/25/22 16:34> History of Present Illness HPI Narrative: 62yo female with history of type 2 diabetes, osteoarthritis, and extensive lumbar surgery with fixation from L3 through S1 with a bone graft, presenting with left leg pain for 3 days. Patient stated that she woke up with the pain that radiated down her posterior thigh and calf with circumferential pain around her ankle. She stated that helps pain before and it comes every 2-3 year. In the past she was treated with analgesics and physical therapy which helped relieve the pain. She stated that she has sciatica in her right leg and this is not a similar sensation. Patient stated that the pain is dull with occasional sharp twinges of pain when she bears weight on the left foot. Patient denies any swelling ecchymosis or erythema. She denies any trauma or incident that preceded the symptoms. <LUIS Lux Last Filed: 11/25/22 16:34> MD Complaint: extremity pain (left lower) <LUIS Lux Last Filed: 11/25/22 16:34> Onset (ago): day(s) (3) <LUIS Lux Last Filed: 11/25/22 16:34> Pain Consistency: constant <LUIS Lux Last Filed: 11/25/22 16:34> Location: left and lower extremity <LUIS Lux Last Filed: 11/25/22 16:34> Quality: sharp (twinges when bearing weight) and dull <LUIS Lux - Last Filed: 11/25/22 16:34> Exacerbating factors: weight bearing and palpation <LUIS Lux Last Filed: 11/25/22 16:34> Associated symptoms: denies other symptoms <LUIS Lux - Last Filed: 11/25/22 16:34> Related Data Home medications: Previous Rx's Medication Instructions Recorded glimepiride 1 mg tablet 1 mg PO QAM #14 tabs 08/07/20 cefuroxime axetil 500 mg tablet 500 mg PO Q12H 10 days #20 tabs 11/23/20 ketorolac 10 mg tablet 10 mg PO Q6H 5 days #20 tabs 11/23/20 phenazopyridine 200 mg tablet 200 mg PO TID PRN pain 6 doses #6 11/23/20 (Pyridium) tabs albuterol sulfate 90 mcg/actuation 2 puff inhalation Q4-6H PRN 06/17/22 aerosol inhaler (ProAir HFA) shortness of breath or wheezing #8.5 grams prednisone 20 mg tablet 40 mg PO DAILY #10 tabs 06/17/22 cyclobenzaprine 10 mg tablet 10 mg PO TID PRN muscle spasm #10 11/25/22 tabs naproxen 500 mg tablet 500 mg PO BID PRN pain #20 tabs 11/25/22 <LUIS Blanchard - Last Filed: 11/25/22 13:05> Allergies/Adverse reactions: Allergies Allergy/AdvReac Type Severity Reaction Status Date / Time morphine [MORPHINE] Allergy Intermediate VOMITING Unverified 04/26/20 15:45 lisinopril [LISINOPRIL] Allergy Unknown COUGH DRY Unverified 04/26/20 15:45 Motrin Allergy Unknown Uncoded 09/15/19 00:00 SEAFOOD Allergy Unknown FACIAL Uncoded 04/26/20 15:45 SWELLING <LUIS Blanchard - Last Filed: 11/25/22 13:05> Review of Systems Review of Systems: Yes all other systems are reviewed and are negative <LUIS Lux Last Filed: 11/25/22 16:34> PMFSH Past Medical History Medical History: Medical History Asthma Diabetes mellitus, type 2 Hypertension <LUIS Blanchard - Last Filed: 11/25/22 13:05> Social History Social History: Social History Alcohol intake: never Advance Directives: Yes Advance Directives on File: Yes Advance Directives Date on File: 11/23/20 <LUIS Blanchard - Last Filed: 11/25/22 13:05> Physical Exam Vital Signs: Vital Signs: Last Vital Signs Temp 97.9 F 11/25/22 13:03 Pulse 63 11/25/22 13:03 Resp 16 11/25/22 13:03 BP 176/88 H 11/25/22 13:03 Pulse Ox 100 11/25/22 13:03 O2 Del Method Room Air 11/25/22 13:03 BMI result Body Mass Index 23.8 <LUIS Blanchard - Last Filed: 11/25/22 13:05> Vital Signs: Last Vital Signs Temp 97.9 F 11/25/22 13:03 Pulse 63 11/25/22 13:03 Resp 16 11/25/22 13:03 BP 176/88 H 11/25/22 13:03 Pulse Ox 100 11/25/22 13:03 O2 Del Method Room Air 11/25/22 13:03 BMI result Body Mass Index 23.8 <LUIS Lux - Last Filed: 11/25/22 16:34> Appearance: Alert. Oriented X3. No acute distress. HEENT: normal inspection CVS: Normal heart rate and rhythm. Pulses normal. Respiratory: No respiratory distress. Skin: Skin warm and dry. Normal skin color. Normal skin turgor. No rashes. Extremities: Unremarkable visual inspection of extremities. No erythema edema or ecchymosis noted. Tenderness to palpation over achilles tendon and proximally over gastrocnemius. Negative Gallagher test. Full ankle strength and ROM bilaterally. Pedal pulses present and equal in strength bilaterally. Neuro: Oriented X 3. No motor deficit. No sensory deficit. <LUIS Lux - Last Filed: 11/25/22 16:34> Course Course Course Narrative: This is an RME: Additional HPI, ROS, PE not included below will be deferred to primary provider. 62-year-old female history of asthma presents to the emergency department with atraumatic 8/10 left-sided hip pain that radiates down to the left foot, making it difficult for patient to walk. Over the past 3 days pain has been progressively worsening, this has happened her before however unclear as to what is causing the pain. Denies numbness and tingling. Physical exam benign. Patient ambulatory into triage. Normal sensation Plan imaging of the pelvis. <LUIS Blanchard - Last Filed: 11/25/22 13:05> Medical Decision Making Medical Decision Making MDM Narrative: 62yo female with history type 2 diabetes, osteoarthritis, and prior lumbar surgery with fixation of L3-S1 an bone graft presenting for left leg pain for 3 days. Patient's physical exam showed tenderness along the gastrocnemius and Achilles tendon. X-ray and US were unremarkable. Patient was prescribed cyclobenzaprine and naproxen. She was instructed to take her medications as directed. She was instructed to follow up with her primary care doctor and to call 911 or return if she develops new or worsening symptoms. <LUIS Lux - Last Filed: 11/25/22 16:34> Differential Diagnosis Differential Diagnoses: The differential diagnosis associated with the presentation includes <LUIS Lux Last Filed: 11/25/22 16:34> gastrocnemius strain, DVT, achiles tendon inflammation, achilles rupture, sciatica <LUIS Lux - Last Filed: 11/25/22 16:34> Independent Interpretation I performed an independent interpretation of an: Plain X-Ray and Ultrasound <LUIS Lux Last Filed: 11/25/22 16:34> Interpretation: I reviewed the x-ray and ultrasound and agree with the radiologist's impressions <LUIS Lux Last Filed: 11/25/22 16:34> Radiology Impression Discussion of test interpretation with radiology: I have reviewed the radiologist's reading. <LUIS Lux Last Filed: 11/25/22 16:34> Radiologist Impression: EXAMINATION: XR HIP, LEFT CLINICAL INFORMATION: Left hip pain COMPARISON: September 18, 2017 TECHNIQUE: AP chest and 2 views of the left hip. FINDINGS: AP film of the pelvis does not demonstrate any evidence of acute fracture or diastases. Hardware from previous lumbar spine surgery is seen including screws within S1. The sacroiliac joints appear unremarkable. The hip joint spaces are maintained. No destructive bony lesion appreciated. 2 views of the left hip do not demonstrate any evidence of acute fracture or dislocation. Joint spaces maintained. No significant degenerative spurring is seen. No lytic or sclerotic lesions identified. No evidence of femoral head collapse. XR/XR hip LT w PEL1V IMPRESSION: No significant bony abnormality of the left hip. ? Status post lumbar spine surgery. EXAMINATION: LEFT LOWER EXTREMITY DEEP VENOUS ULTRASOUND CLINICAL INFORMATION: Left lower extremity pain. COMPARISON: None. TECHNIQUE: Duplex Doppler imaging with compression maneuvers were performed of the left lower extremity deep venous system. FINDINGS: The visualized common femoral, femoral and popliteal veins demonstrate normal compressibility and color flow without evidence of venous thrombosis. ? Visualized portions of the calf veins demonstrate normal color fill-in suggesting patency. There is no evidence of a Radford's cyst. US/US venous duplex LE LT IMPRESSION: No evidence of deep venous thrombosis involving the left lower extremity. <LUIS Lux - Last Filed: 11/25/22 16:34> External Record Review External record reviewed: Prior outpatient labs and Prior outpatient radiology <LUIS Lux - Last Filed: 11/25/22 16:34> Prescription Management I considered prescription management with: Pain Medication and Other <LUIS Lux - Last Filed: 11/25/22 16:34> Critical Care Time Critical Care Time Critical Care Time: No <LUIS Lux - Last Filed: 11/25/22 16:34> Discharge Plan Discharge Clinical Impression: Leg pain <LUIS Blanchard Last Filed: 11/25/22 13:05> Patient Disposition: Home, Self-Care <LUIS Blanchard Last Filed: 11/25/22 13:05> Instructions: Leg Pain (ED) <LUIS Blanchard Last Filed: 11/25/22 13:05> Additional Instructions: You were seen today for evaluation of left leg pain. Your ultrasound showed: No evidence of deep venous thrombosis involving the left lower extremity. Your x-ray showed: No significant bony abnormality of the left hip. Status post lumbar spine surgery. I prescribed cyclobenzaprine and naproxen. It is important that he take the medications as instructed. Follow-up with your primary care doctor and call 911 or return to the ER if you develop new or worsening symptoms. <LUIS Blanchard Last Filed: 11/25/22 13:05> Prescriptions: New cyclobenzaprine 10 mg tablet 10 mg PO TID PRN (Reason: muscle spasm) Qty: 10 0RF naproxen 500 mg tablet 500 mg PO BID PRN (Reason: pain) Qty: 20 0RF No Action glimepiride 1 mg tablet 1 mg PO QAM Qty: 14 0RF Rx Instructions: administer with breakfast ketorolac 10 mg tablet 10 mg PO Q6H 5 Days Qty: 20 0RF cefuroxime axetil 500 mg tablet 500 mg PO Q12H 10 Days Qty: 20 0RF phenazopyridine [Pyridium] 200 mg tablet 200 mg PO TID PRN (Reason: pain) Qty: 6 0RF albuterol sulfate [ProAir HFA] 90 mcg/actuation HFA aerosol inhaler 2 puff inhalation Q4-6H PRN (Reason: shortness of breath or wheezing) Qty: 8.5 0RF prednisone 20 mg tablet 40 mg PO DAILY Qty: 10 0RF <LUIS Blanchard - Last Filed: 11/25/22 13:05>
== END 2022-11-25 16:35 | disposition home or self-care (01) ==
PROVIDERS: Emergency Provider Emergency Medicine; PCP Internal Medicine
DX: M79.605 Pain in left leg (principal); E11.9 Type 2 diabetes mellitus without complications; I10 Essential (primary) hypertension
CPT/HCPCS: 73502; 93971; 99282; 99284

== ENCOUNTER 2023-07-13 13:00 | Outpatient (RCR) | payer OTHER, SELFPAY ==
[2023-05-04 13:17] VITALS: BP 162/87; PULSE 78
== END 2023-08-24 08:52 | disposition home or self-care (01) ==
LOC: HO.PT 13:00
PROVIDERS: PCP Internal Medicine; Visit Provider Internal Medicine
DX: M54.16 Radiculopathy, lumbar region (principal)
CPT/HCPCS: 97110; 97140; 97161

== ENCOUNTER 2024-09-05 13:10 | Emergency (ER) | payer OTHER, SELFPAY ==
--- NOTE | ~2024-09-05 | XR_ITS ---
EXAMINATION: XR CHEST 2 VIEWS HISTORY: chest pain, dizziness COMPARISON: Comparison is made with the prior examination dated 08/07/2020. FINDINGS: PA and lateral views of the chest are submitted. The lungs are expanded and clear. There is no pleural effusion, pneumothorax, or pulmonary vascular congestion. The heart is normal in size. There is degenerative disc disease of the spine. XR/XR chest 2V IMPRESSION: No acute cardiopulmonary abnormality. Electronically signed by: Osman Benoit MD 09/05/2024 02:41 PM MANJEET
[2024-09-05 13:23] VITALS: BP 130/78; PULSE 74; O2SAT 100
[2024-09-05 13:44] VITALS: PULSE 71; RESP 16; TEMP 36; O2SAT 98; BMI 23.4
--- NOTE | 2024-09-05 13:45 | ED_ITS ---
HPI - General Adult General Chief complaint: Dizziness Stated complaint: NEAR SYNCOPE,DIZZY,MALAISE,WEAKNESS PER EMS Time Seen by Provider: 09/05/24 20:19 Source: patient Limitations: no limitations History of Present Illness ED Provider: Monica Martinez PA-C HPI narrative: 64-year-old female with a history of diabetes, hypertension and asthma presents with chest pain x5 days. Patient states she has recurrent left anterior chest discomfort that is intermittent. Patient states she ?has an irregular heart beat, that causes pain?. When patient detects the ?irregular be?, she states she feels dizzy and weak. Pain over chest wall is elicited with palpation. Patient denies new activity, heavy lifting or trauma. Denies recent cough or cold symptoms or fever. Related Data Previous Rx's ?Medication ?Instructions ?Recorded glimepiride 1 mg tablet 1 mg PO QAM #14 tabs 08/07/20 cefuroxime axetil 500 mg tablet 500 mg PO Q12H 10 days #20 tabs 11/23/20 ketorolac 10 mg tablet 10 mg PO Q6H 5 days #20 tabs 11/23/20 phenazopyridine 200 mg tablet 200 mg PO TID PRN pain 6 doses #6 11/23/20 (Pyridium) tabs albuterol sulfate 90 mcg/actuation 2 puff inhalation Q4-6H PRN 06/17/22 aerosol inhaler (ProAir HFA) shortness of breath or wheezing #8.5 grams prednisone 20 mg tablet 40 mg (2 x 20 mg) PO DAILY #10 tabs 06/17/22 cyclobenzaprine 10 mg tablet 10 mg PO TID PRN muscle spasm #10 11/25/22 tabs naproxen 500 mg tablet 500 mg PO BID PRN pain #20 tabs 11/25/22 Allergies Allergy/AdvReac Type Severity Reaction Status Date / Time morphine [MORPHINE] Allergy Intermediate VOMITING Verified 09/05/24 13:48 lisinopril [LISINOPRIL] Allergy Unknown COUGH DRY Verified 09/05/24 13:48 Motrin Allergy Unknown Unknown Uncoded 09/05/24 13:48 SEAFOOD Allergy Unknown FACIAL Uncoded 04/26/20 15:45 SWELLING Review of Systems 2 Review of Systems: Yes all other systems are reviewed and are negative Constitutional: Constitutional: Denies fatigue and Denies fever(s) ENT: Reports dizziness Cardiovascular: Cardiovascular: Reports chest pain, Reports irregular heart rhythm, Reports palpitations and Denies dyspnea Respiratory: Respiratory: Denies cough and Denies dyspnea Neurologic: Reports dizziness Endocrine: Endocrine: Denies fatigue and Reports palpitations [facility] Past Medical History Attestation statement: The following information was validated with the patient. Medical History Asthma Diabetes mellitus, type 2 Hypertension Social History Social History Alcohol intake: never Advance Directives: Yes Advance Directives on File: Yes Advance Directives Date on File: 11/23/20 Do you have a plan to hurt others: No Plan Physical Exam ED Vital Signs: Vital Signs - 24 hr 09/05/24 13:44 09/05/24 20:01 Temperature 96.8 F 98.1 F Pulse Rate 71 75 Respiratory Rate 16 16 Blood Pressure 146/76 H Pulse Oximetry 98 98 Oxygen Delivery Method Room Air Room Air BMI result Body Mass Index 23.4 Const Other: Alert well-appearing Orientation/consciousness: patient oriented x3 Chest Other: Pain elicited with palpation of left anterior chest wall no deformity no erythema no ecchymosis Resp Effort & Inspection: normal respiratory effort Cardio Other: Normal peripheral perfusion Skin Other: Warm dry no rash Neuro General: patient oriented x3, no focal motor deficits and CN's II-XI intact bilaterally Psych Other: Calm Course Course Course Narrative: RME performed by Kriss Boone PA-C. Patient is a 64 year old assigned female at presenting to the emergency department with dizziness and chest pain. Detailed physical exam and review of systems are deferred to the [employer] [facility] specialist. EKG, labs, imaging, and swabs ordered. Patient placed back in the waiting room pending room availability and results. Medical Decision Making Medical Decision Making MDM Narrative: 64-year-old female with a history of diabetes, hypertension and asthma presents with chest pain x5 days. Patient states she has recurrent left anterior chest discomfort that is intermittent. Patient states she ?has an irregular heart beat, that causes pain?. When patient detects the ?irregular be?, she states she feels dizzy and weak. Pain over chest wall is elicited with palpation. Patient denies new activity, heavy lifting or trauma. Denies recent cough or cold symptoms or fever. Problem: Hypertension diabetes History: Per patient I have considered the following differential diagnoses: Palpitations, ACS, near-syncope, chest wall pain, costochondritis Plan: ACS was considered, the patient has multiple risk factors for coronary artery disease. Screening labs including a cardiac enzymes EKG and chest x-ray were obtained. Thought about costochondritis, however she has not had preceding viral syndrome. Thought about chest wall strain given the reproducibility of the discomfort with palpation, however she does not have a mechanism of injury. Her symptoms are chronic. She can follow up with her primary care provider. I have independently reviewed the following tests: Labs: No leukocytosis, not anemic, no electrolyte abnormality, troponin negative EKG: Normal sinus rhythm, rate of 69, no ischemic changes no ectopy Chest x-ray:INDINGS: PA and lateral views of the chest are submitted. The lungs are expanded and clear. There is no pleural effusion, pneumothorax, or pulmonary vascular congestion. The heart is normal in size. There is degenerative disc disease of the spine. XR/XR chest 2V IMPRESSION: No acute cardiopulmonary abnormality. Electronically signed by: Osman Benoit MD 09/05/2024 02:41 PM [facility] [place] 09/05/24 16:05 09/05/24 16:05 Labs: Lab Results 09/05/24 Range/Units 16:05 WBC 11.7 H (4.8-10.8) X10*3/uL RBC 4.81 (4.20-5.50) X10*6/uL Hgb 13.7 (12.0-16.0) g/dl Hct 40.9 (37.0-47.0) % MCV 85.0 (80.0-98.0) fL MCH 28.5 (27.0-33.0) pg MCHC 33.5 (31.0-35.0) g/dl RDW 13.4 (11.0-16.0) % Plt Count 259 (160-400) X10*3/uL MPV 11.3 (9.4-12.3) fL Immature Gran % (Auto) 0.3 (0.0-0.4) % Neut % (Auto) 76.0 H (45-73) % Lymph % (Auto) 17.5 L (20-40) % Grady % (Auto) 5.7 (2-11) % Eos % (Auto) 0.3 (0-4) % Baso % (Auto) 0.2 (0-2) % Lymph # (Auto) 2.1 (1.2-4.9) X10*3/uL Grady # (Auto) 0.7 (0.1-1.2) X10*3/uL Eos # (Auto) 0.0 (0.0-0.4) X10*3/uL Baso # (Auto) 0.0 (0.0-0.2) X10*3/uL Abs Immat Gran (auto) 0.04 H (0.00-0.03) X10*3/uL Absolute Neuts (auto) 8.9 H (2.0-8.3) x10*3/uL Absolute Nucleated RBC 0.000 (0.0-0.012) X10*3/uL Nucleated RBC % (auto) 0.0 (0.0-0.2) /100WBC Sodium 138 (135-145) mmol/L Potassium 4.1 (3.3-5.1) mmol/L Chloride 104 (96-108) mmol/L Carbon Dioxide 26 (22-29) mmol/L Anion Gap 12 (12-20) BUN 12 (9-16) mg/dL Creatinine 0.75 (0.5-1.4) mg/dL Estim Creat Clear Calc 70.0 Estimated GFR > 60 Random Glucose 147 H (60-115) mg/dL Calcium 9.8 (8.4-10.2) mg/dL Magnesium 2.4 (1.6-2.6) mg/dL Total Bilirubin 1.1 H (0.0-1.0) mg/dL AST 30 (5-31) U/L ALT 40 H (0-31) U/L Alkaline Phosphatase 75 (39-117) U/L Troponin I High Sens < 2.7 (<3.5-17.0) ng/L Total Protein 7.7 (6.5-8.0) g/dL Albumin 4.7 (3.5-5.0) g/dL Influenza Type A (PCR) NEGATIVE (Negative) Influenza Type B (PCR) NEGATIVE (Negative) RSV RNA Qual (PCR) NEGATIVE (Negative) SARS-CoV-2 RNA (RT-PCR) NEGATIVE (Negative) Discharge Plan Discharge Clinical Impression: Chest pain of unknown etiology Patient Disposition: Home, Self-Care Instructions: Noncardiac Chest Pain (ED) Additional Instructions: All of your screening labs including a cardiac enzymes were normal. The cardiac enzyme itself was negative. There were no concerning changes on your EKG and the chest x-ray is clear. You can follow up with your primary care provider. Prescriptions: No Action glimepiride 1 mg tablet 1 mg PO QAM Qty: 14 0RF Rx Instructions: administer with breakfast ketorolac 10 mg tablet 10 mg PO Q6H 5 Days Qty: 20 0RF cefuroxime axetil 500 mg tablet 500 mg PO Q12H 10 Days Qty: 20 0RF phenazopyridine [Pyridium] 200 mg tablet 200 mg PO TID PRN (Reason: pain) Qty: 6 0RF albuterol sulfate [ProAir HFA] 90 mcg/actuation HFA aerosol inhaler 2 puff inhalation Q4-6H PRN (Reason: shortness of breath or wheezing) Qty: 8.5 0RF prednisone 20 mg tablet 40 mg PO DAILY Qty: 10 0RF cyclobenzaprine 10 mg tablet 10 mg PO TID PRN (Reason: muscle spasm) Qty: 10 0RF naproxen 500 mg tablet 500 mg PO BID PRN (Reason: pain) Qty: 20 0RF Print Language: Yi
--- NOTE | 2024-09-05 13:45 | ECG_ITS ---
Test Reason : CP DIZZY Blood Pressure : */* mmHG Vent. Rate : 69 BPM Atrial Rate : 69 BPM P-R Int : 158 ms QRS Dur : 88 ms QT Int : 414 ms P-R-T Axes : 52 46 54 degrees QTcB Int : 443 ms Normal sinus rhythm Normal ECG When compared with ECG of 25-Sep-2018 17:04, No significant change was found Referred By: Kriss Boone Electronically Signed By: CHARLENE BOCANEGRA
[2024-09-05 16:09] LABS: MANUAL DIFF FLAG NO
[2024-09-05 16:11] LABS: Basophils Percent Auto 0.2 % (0-2); Eosinophils Percent Auto 0.3 % (0-4); Hematocrit 40.9 % (37.0-47.0); Hemoglobin 13.7 g/dl (12.0-16.0); Imm Gran Abs Auto 0.04 X10*3/uL (0.00-0.03); Imm Gran Pct Auto 0.3 % (0.0-0.4); Lymphocytes Absolute Auto 2.1 X10*3/uL (1.2-4.9); Lymphocytes Percent Auto 17.5 % (20-40); Mean Corpuscular HGB Conc 33.5 g/dl (31.0-35.0); Mean Corpuscular Hemoglobin 28.5 pg (27.0-33.0); Mean Platelet Volume 11.3 fL (9.4-12.3); Monocytes Absolute Auto 0.7 X10*3/uL (0.1-1.2); Monocytes Percent Auto 5.7 % (2-11); Neutrophils Absolute Auto 8.9 x10*3/uL (2.0-8.3); Platelet Count 259 X10*3/uL (160-400); Red Blood Count 4.81 X10*6/uL (4.20-5.50); Red Cell Distribution Width 13.4 % (11.0-16.0); White Blood Count 11.7 X10*3/uL (4.8-10.8)
[2024-09-05 16:24] LABS: Alanine Aminotransferase 40 U/L (0-31); Albumin Level 4.7 g/dL (3.5-5.0); Alkaline Phosphatase 75 U/L (39-117); Anion Gap 12 (12-20); Aspartate Amino Transferase 30 U/L (5-31); Bilirubin Total 1.1 mg/dL (0.0-1.0); Blood Urea Nitrogen 12 mg/dL (9-16); Calcium 9.8 mg/dL (8.4-10.2); Carbon Dioxide 26 mmol/L (22-29); Chloride 104 mmol/L (96-108); Estimated Glomerular Filt Rate > 60; Glucose Random 147 mg/dL (60-115); Magnesium 2.4 mg/dL (1.6-2.6); Potassium 4.1 mmol/L (3.3-5.1); Sodium 138 mmol/L (135-145); Total Protein 7.7 g/dL (6.5-8.0)
[2024-09-05 16:32] LABS: Troponin-I High Sensitivity < 2.7 ng/L (<3.5-17.0)
[2024-09-05 17:10] LABS: Influenza A PCR NEGATIVE (Negative); Influenza B PCR NEGATIVE (Negative); Resp Syncy Virus RNA Qual PCR NEGATIVE (Negative); SARS COV2 PCR INHOUSE NEGATIVE (Negative)
[2024-09-05 20:01] VITALS: BP 146/76; PULSE 75; RESP 16; TEMP 36.7; O2SAT 98
[2024-09-05 21:35] VITALS: BP 146/76; PULSE 75; RESP 16; TEMP 36.7; O2SAT 98
== END 2024-09-05 21:36 | disposition home or self-care (01) ==
PROVIDERS: Physician Assistant Medical; Emergency Provider Emergency Medicine; PCP Internal Medicine
DX: R07.9 Chest pain, unspecified (principal); E11.9 Type 2 diabetes mellitus without complications; I10 Essential (primary) hypertension; J45.909 Unspecified asthma, uncomplicated; Z03.818 Encounter for observation for suspected exposure to other biological agents ruled out; Z79.899 Other long term (current) drug therapy
CPT/HCPCS: 0241U; 71046; 80053; 83735; 84484; 85025; 93005; 99283; 99284

== ENCOUNTER → 2024-09-05 13:45 | Outpatient (BNV) | payer OTHER, SELFPAY | PROVIDERS: Emergency Provider Emergency Medicine; PCP Internal Medicine; Visit Provider Internal Medicine | DX: R07.9 Chest pain, unspecified (principal) | CPT/HCPCS: 93010 ==

== ENCOUNTER → 2024-09-05 13:45 | Outpatient (BNV) | payer OTHER, SELFPAY | PROVIDERS: Visit Provider Radiology Diagnostic Radiology | DX: R07.9 Chest pain, unspecified (principal); R42 Dizziness and giddiness | CPT/HCPCS: 71046 ==

== ENCOUNTER 2025-02-17 17:03 | Emergency (ER) | payer MEDICARE, MEDICAID, SELFPAY ==
--- NOTE | ~2025-02-17 | CT_ITS ---
CLINICAL HISTORY: tumor?? prior as child, new AMS CT Head Without Contrast: Comparison: None Findings: Cortical sulci are symmetric Basal ganglia are unremarkable No shift in midline structures No intraparenchymal bleeding or abnormal extra axial blood fluid collections Normal pituitary size Clear paranasal sinuses Unremarkable orbital structures No depressed fractures Impression: Chronic involutional volume loss with no acute findings. This document has been electronically signed by: Rocky Rader MD on 02/17/2025 20:13:08
--- NOTE | ~2025-02-17 | XR_ITS ---
CLINICAL HISTORY: pain 1 view chest x-ray Comparison: CR/SR - XR CHEST 2V - 09/05/24 14:09 EST Findings: No consolidation or effusion. Normal size heart. No acute fracture. IMPRESSION: 1. No acute findings. This document has been electronically signed by: Gloria Morin MD on 02/17/2025 19:10:04
[2025-02-17 17:14] VITALS: BP 149/91; BP 153/76; PULSE 100; RESP 14; TEMP 36.6; O2SAT 97; O2SAT 99; BMI 23.4
[2025-02-17 17:19] VITALS: BP 149/91; PULSE 100; RESP 14; TEMP 36.6; O2SAT 97
--- NOTE | 2025-02-17 17:22 | ED_ITS ---
HPI - Chest Pain General Chief Complaint: Chest Pain Stated Complaint: chest pain, paranoia/hallucinations per fam Time Seen by Provider: 02/17/25 17:22 Source: patient Limitations: no limitations History of Present Illness ED Provider: Monica Martinez PA-C HPI narrative: 64-year-old female with a history of asthma, hypertension and diabetes, with self report of brain tumors as a child, status post resection, who presents with chest pain for a month. Patient states she has been having intermittent discomfort over left anterior chest. Pain worse with palpation of chest wall. Patient denies repetitive activity, overuse injury, trauma, or heavy lifting that could have precipitated her symptoms. Denies recent cough or cold symptoms no fevers. The daughter is here at bedside, she is verbalizing concerns over her mother's behavior. She has been exhibiting paranoid delusions, thinking that people are in the home cleaning when they are not. She has also been accusing her other daughter of stealing money from her. The patient has been having escalating symptoms over the past 8 months. She is also experiencing confusion and memory loss at times. Related Data Home Medications ?Medication ?Instructions ?Recorded ?Confirmed acetaminophen 650 mg 1,300 mg PO Q8H PRN fever 02/18/25 tablet,extended release albuterol sulfate 90 mcg/actuation 2 puff inhalation Q 4-6H PRN 02/18/25 02/18/25 aerosol inhaler (Ventolin HFA) Shortness Of Breath Or Wheezing amlodipine 10 mg tablet 10 mg PO DAILY 02/18/2502/07 aspirin 81 mg tablet,delayed 81 mg PO DAILY 02/18/25 0 02/18/25 release nitroglycerin 0.4 mg sublingual 0.4 mg sublingual Q5M PRN Chest 02/18/25 02/18/25 tablet (Nitrostat) Pain rosuvastatin 40 mg tablet 40 mg PO DAILY 02/18/2502/07 tramadol 50 mg tablet 50 mg PO Q8H PRN pain 02/18/25 Allergies Allergy/AdvReac Type Severity Reaction Status Date / Time morphine (MORPHINE) Allergy Intermediate VOMITING Verified 02/17/25 17:19 lisinopril (LISINOPRIL) Allergy Unknown COUGH DRY Verified 02/17/25 17:19 Motrin Allergy Unknown Unknown Uncoded 02/17/25 17:19 SEAFOOD Allergy Unknown FACIAL Uncoded 02/17/25 17:19 SWELLING Review of Systems 2 Review of Systems: Yes all other systems are reviewed and are negative Constitutional: Constitutional: Denies fatigue, Denies fever(s) and Denies headache(s) ENT: Denies dizziness and Denies headache(s) Cardiovascular: Cardiovascular: Reports chest pain and Denies dyspnea Respiratory: Respiratory: Denies cough and Denies dyspnea Gastrointestinal: Gastrointestinal: Denies abdominal pain, Denies nausea and Denies vomiting Neurologic: Denies dizziness and Denies headache(s) Endocrine: Endocrine: Denies fatigue [facility] Past Medical History Attestation statement: The following information was validated with the patient. Medical History Asthma Diabetes mellitus, type 2 Hypertension Social History Social History Alcohol intake: never Smoked in Last 30 Days: No Use of substances other than those prescribed or required for medical reasons: No Advance Directives: Yes Advance Directives on File: Yes Advance Directives Date on File: 11/23/20 Do you have a plan to hurt others: No Plan Physical Exam 2 Vital Signs: Vital Signs: Last Vital Signs Temp 0 F L 02/18/25 13:59 Pulse 0 L 02/18/25 13:59 Resp 0 L 02/18/25 13:59 BP 0/0 L 02/18/25 13:59 Pulse Ox 0 L 02/18/25 13:59 O2 Del Method Room Air 02/18/25 06:38 BMI result Body Mass Index 23.4 Const: Other: Alert well-appearing Orientation/consciousness: patient oriented x3 Chest: Other: Pain elicited left anterior chest with palpation of chest wall no deformity noted Resp: Effort & Inspection: normal respiratory effort Cardio: Other: Normal peripheral perfusion Skin: Other: Warm dry no rash Neuro: General: patient oriented x3, gait normal, no focal motor deficits and CN's II-XI intact bilaterally Psych: Other: Cooperative Course Reevaluation(s) Reevaluation #1: Time: 22:16 Date: 02/17/25 Provider: LUIS Sharma Patient in physician observation for psychiatric evaluation.? No acute events reported overnight. No current complaints. VS stable.? Patient is in bed search status/pending CARE team evaluation. Will continue to monitor. Speaking with the care team, they are in agreement, the patient needs a psychiatric evaluation. I will place the order. She will be held on physician labs overnight Time: 08:08 Date: 02/18/25 Provider: LUIS Jean-Baptiste Patient in physician observation.? No acute events reported overnight. No current complaints. VS stable.? Awaiting psychiatric evaluation. 1209 - patient was placed on a section 12, pending further evaluation from the psychiatric consult team and care team. Patient becoming increasingly angry, stating that she should not be here and would like to leave. I discussed with patient that we are awaiting a psychiatric consult. She states that ?I am not crazy?. She states that she is here as she feels as though her daughters are after her money which is why she is stuck here. Patient is talking to herself in her room. I called over to the psychiatric floor, psychiatry will be down to see her. 1300 - patient becoming increasingly agitated stating that she does not need to be here. Given increased agitation, I deferred to my attending physician, Dr. Marc who spent a significant amount of time with patient. Patient met with care team and Dr. Marc performed mental status exam and accessory wrist. Patient was alert and oriented, after this re-evaluation, he did not feel that she presented as an imminent wrist, and could not be held on a section 12. Patient refusing all help, including psychiatric evaluation. At this time, it was deemed that patient can be appropriately discharged and patient does not present as an imminent risk, and does not meet criteria for section 12. Time: 22:16 Medical Decision Making Medical Decision Making MDM Narrative: 64-year-old female with a history of asthma, hypertension and diabetes, with self report of brain tumors as a child, status post resection, who presents with chest pain for a month. Patient states she has been having intermittent discomfort over left anterior chest. Pain worse with palpation of chest wall. Patient denies repetitive activity, overuse injury, trauma, or heavy lifting that could have precipitated her symptoms. Denies recent cough or cold symptoms no fevers. The daughter is here at bedside, she is verbalizing concerns over her mother's behavior. She has been exhibiting paranoid delusions, thinking that people are in the home cleaning when they are not. She has also been accusing her other daughter of stealing money from her. The patient has been having escalating symptoms over the past 8 months. She is also experiencing confusion and memory loss at times. Problem: Diabetes, prior brain tumor History: Per patient and her daughter I have considered the following differential diagnoses: New brain tumor, new onset dementia, ACS, chest wall strain, costochondritis , PE Plan: In regard to the patient's physical complaints, ACS was considered, she does have some risk factor for coronary artery disease. Screening labs including cardiac enzymes EKG and chest x-ray obtained. Her pain is most consistent with chest wall strain, she just does not have a mechanism of injury. She has not had recent cough or cold symptoms to suggest costochondritis. In regard to her underlying paranoid delusions and confusion, she may have early stages of dementia. We will be placing a care team consult. I am also obtaining a CT scan of the brain to rule out new tumor burden that could be contributory to her symptoms. To note, she is neurologically intact, at this point she is alert and oriented. Adding on drug screen, ethanol. Patient was also tachycardic on arrival, her heart rate has since settled, I did add a dimer. I have independently reviewed the following tests: Labs: No leukocytosis, not anemic, no electrolyte abnormality, troponin negative at less than 2.7, dimer less than 150 EKG: Normal sinus rhythm, rate of 93, no ischemic changes no ectopy Chest x-ray:indings: No consolidation or effusion. Normal size heart. No acute fracture. IMPRESSION: 1. No acute findings. CT brain:Findings: Cortical sulci are symmetric Basal ganglia are unremarkable No shift in midline structures No intraparenchymal bleeding or abnormal extra axial blood fluid collections Normal pituitary size Clear paranasal sinuses Unremarkable orbital structures No depressed fractures Impression: Chronic involutional volume loss with no acute findings Lab Data 02/17/25 17:32 02/17/25 17:32 Labs: Lab Results 02/17/25 02/17/25 Range/Units 17:32 19:39 WBC 9.3 (4.8-10.8) X10*3/uL RBC 4.58 (4.20-5.50) X10*6/uL Hgb 13.2 (12.0-16.0) g/dl Hct 37.9 (37.0-47.0) % MCV 82.8 (80.0-98.0) fL MCH 28.8 (27.0-33.0) pg MCHC 34.8 (31.0-35.0) g/dl RDW 13.2 (11.0-16.0) % Plt Count 259 (160-400) X10*3/uL MPV 11.9 (9.4-12.3) fL Immature Gran % (Auto) 0.2 (0.0-0.4) % Neut % (Auto) 62.9 (45-73) % Lymph % (Auto) 29.2 (20-40) % Childress % (Auto) 6.6 (2-11) % Eos % (Auto) 0.8 (0-4) % Baso % (Auto) 0.3 (0-2) % Lymph # (Auto) 2.7 (1.2-4.9) X10*3/uL Childress # (Auto) 0.6 (0.1-1.2) X10*3/uL Eos # (Auto) 0.1 (0.0-0.4) X10*3/uL Baso # (Auto) 0.0 (0.0-0.2) X10*3/uL Abs Immat Gran (auto) 0.02 (0.00-0.03) X10*3/uL Absolute Neuts (auto) 5.9 (2.0-8.3) x10*3/uL Absolute Nucleated RBC 0.000 (0.0-0.012) X10*3/uL Nucleated RBC % (auto) 0.0 (0.0-0.2) /100WBC D-Dimer High Sensitivty < 150 NG/ML Sodium 140 (135-145) mmol/L Potassium 3.6 (3.3-5.1) mmol/L Chloride 104 (96-108) mmol/L Carbon Dioxide 27 (22-29) mmol/L Anion Gap 13 (12-20) BUN 16 (9-16) mg/dL Creatinine 0.68 (0.5-1.4) mg/dL Estim Creat Clear Calc 77.2 Estimated GFR > 60 Random Glucose 212 H (60-115) mg/dL Calcium 9.7 (8.4-10.2) mg/dL Magnesium 2.1 (1.6-2.6) mg/dL Total Bilirubin 0.6 (0.0-1.0) mg/dL AST 23 (5-31) U/L ALT 25 (0-31) U/L Alkaline Phosphatase 71 (39-117) U/L Troponin I High Sens < 2.7 (<3.5-17.0) ng/L Total Protein 6.9 (6.5-8.0) g/dL Albumin 4.6 (3.5-5.0) g/dL Lipase 44 (8-78) U/L Urine Color Yellow Urine Appearance Cloudy Urine pH 7.0 (5.0-9.0) Ur Specific Purdin 1.015 (1.005-1.025) Urine Protein Negative (Neg-Trace) mg/dL Urine Glucose (UA) 250 H (Negative) mg/dL Urine Ketones Negative (Negative) mg/dL Urine Blood Negative (Negative) Urine Nitrite Negative (Negative) Ur Leukocyte Esterase Small (1+) H (Negative) Urine RBC 0-2 (0-2) /HPF Urine WBC 11-20 H (0-5) /HPF Ur Squamous Epith Cells 6-10 (0-2) /HPF Urine Bacteria 1+ (None Seen) Hyaline Casts 0-2 (0-2) /LPF Salicylates < 5.0 L (15-30) mg/dL Urine Opiates Screen Not Detected (Not Detect) Ur Buprenorphine Scrn Not Detected (Not Detect) ng/mL Ur Oxycodone Screen Not Detected (Not Detect) ng/mL Urine Methadone Screen Not Detected (Not Detect) ng/mL Urine Fentanyl Screen Not Detected (Not Detect) Acetaminophen < 3 (<30) mcg/mL Ur Barbiturates Screen Not Detected (Not Detect) Ur Phencyclidine Scrn Not Detected (Not Detect) Ur Amphetamines Screen Not Detected (Not Detect) U Benzodiazepines Scrn Not Detected (Not Detect) Urine Cocaine Screen Not Detected (Not Detect) U Marijuana (THC) Screen Not Detected (Not Detect) Discharge Plan Discharge Clinical Impression: Paranoid delusion, Cognitive impairment, Chest wall pain, Brain atrophy Patient Disposition: Left Against Medical Advice Instructions: Chest Wall Pain (ED), Mild Cognitive Impairment: New Diagnosis (DC) Additional Instructions: You were seen in the emergency department due to chest pain. Your medical workup was reassuring. You were seen by the care team and you were also re-evaluated this morning. We recommended that you were able to see Psychiatry however you refused. We are unable to keep you against your will awaiting the psychiatry consult. You should follow-up with your primary care physician regarding this visit. If any new or worsening symptoms occur including but not limited to severe chest pain, shortness of breath, thoughts of harming yourself or others, please seek emergent care. Prescriptions: No Action nitroglycerin [Nitrostat] 0.4 mg Tablet, Sublingual 0.4 mg sublingual Q5M PRN (Reason: Chest Pain) Rx Instructions: max: 3 doses/15 min rosuvastatin 40 mg Tablet 40 mg PO DAILY aspirin 81 mg Tablet,Delayed Release (Dr/Ec) 81 mg PO DAILY tramadol 50 mg tablet 50 mg PO Q8H PRN (Reason: pain) acetaminophen 650 mg tablet extended release 1,300 mg PO Q8H PRN (Reason: fever) amlodipine 10 mg tablet 10 mg PO DAILY albuterol sulfate [Ventolin HFA] 90 mcg/actuation Hfa Aerosol Inhaler 2 puff INHALATION Q4-6H PRN (Reason: Shortness Of Breath Or Wheezing) Stand Alone Forms: Against Medical Advice Interventions: ED Discharge Assessment Last Done: 02/18/25 13:59 Discharge Date/Time: 02/18/25 14:00 Print Language: Nepalese
[2025-02-17 17:36] LABS: MANUAL DIFF FLAG NO
[2025-02-17 17:42] LABS: Hematocrit 37.9 % (37.0-47.0); Hemoglobin 13.2 g/dl (12.0-16.0); Imm Gran Abs Auto 0.02 X10*3/uL (0.00-0.03); Imm Gran Pct Auto 0.2 % (0.0-0.4); Lymphocytes Absolute Auto 2.7 X10*3/uL (1.2-4.9); Mean Corpuscular HGB Conc 34.8 g/dl (31.0-35.0); Mean Corpuscular Hemoglobin 28.8 pg (27.0-33.0); Mean Corpuscular Volume 82.8 fL (80.0-98.0); NRBC Abs Auto 0.000 X10*3/uL (0.0-0.012); NRBC Pct Auto 0.0 /100WBC (0.0-0.2); Platelet Count 259 X10*3/uL (160-400); Red Blood Count 4.58 X10*6/uL (4.20-5.50); White Blood Count 9.3 X10*3/uL (4.8-10.8)
[2025-02-17 17:54] LABS: Alanine Aminotransferase 25 U/L (0-31); Albumin Level 4.6 g/dL (3.5-5.0); Alkaline Phosphatase 71 U/L (39-117); Anion Gap 13 (12-20); Aspartate Amino Transferase 23 U/L (5-31); Blood Urea Nitrogen 16 mg/dL (9-16); Calcium 9.7 mg/dL (8.4-10.2); Carbon Dioxide 27 mmol/L (22-29); Chloride 104 mmol/L (96-108); Creatinine Clr Calc Pharmacy 77.2; Estimated Glomerular Filt Rate > 60; Lipase 44 U/L (8-78); Magnesium 2.1 mg/dL (1.6-2.6); Potassium 3.6 mmol/L (3.3-5.1); Sodium 140 mmol/L (135-145); Total Protein 6.9 g/dL (6.5-8.0)
[2025-02-17 18:01] LABS: Acetaminophen LAB < 3 mcg/mL (<30); Salicylate < 5.0 mg/dL (15-30)
[2025-02-17 18:02] LABS: Troponin-I High Sensitivity < 2.7 ng/L (<3.5-17.0)
[2025-02-17 18:05] LABS: D Dimer High Sensitivity < 150 NG/ML
--- NOTE | 2025-02-17 18:06 | PC.NURSE ---
A&O x 3. Patient presents to ED c/o left sided chest pain 10/10 non radiating. Denies SOB, denies fever, chills. Patient made mention of vision changes blurry in right eye with black dot . Patient took nitro x 1 @ 1000 today with no effect. Patient hypertensive all other vitals stable. CXR taken results pending. Blood collected/sent. Provider in to see patient. Plan of care on going
[2025-02-17 18:39] VITALS: BP 146/82; PULSE 85; RESP 13; TEMP 36.9; O2SAT 97
[2025-02-17 19:48] LABS: Appearance Urine Cloudy; Glucose Urine UA 250 mg/dL (Negative); PH 7.0 (5.0-9.0); Specific Gravity - Urine 1.015 (1.005-1.025); UMIC TRIGGER UACC YES
[2025-02-17 19:50] LABS: UACC Culture Trigger YES
[2025-02-17 19:59] LABS: Cannabinoid Screen Urine Not Detected (Not Detect)
[2025-02-17 22:17] VITALS: BP 135/83; PULSE 81; RESP 16; TEMP 36.2; O2SAT 98
[2025-02-18] VITALS: BP 145/75; PULSE 83; RESP 16; TEMP 36.7; O2SAT 99
[2025-02-18 01:56] VITALS: BP 123/67; PULSE 68; TEMP 36.6; O2SAT 99
[2025-02-18 06:38] VITALS: BP 145/64; PULSE 80; RESP 17; TEMP 36.4; O2SAT 100
--- NOTE | 2025-02-18 12:56 | PHA.MEDREC ---
Addendum entered by Marlin Landrum RPh 02/18/25 13:03: REVIEWED BY [facility] Original Note: Pharmacy Consult ? Medication Reconciliation Pharmacy has completed the medication reconciliation. Spoke with patients daughter, Rona, over the phone. She confirmed patients medications list. These are medications she is supposed to be on. Amlodipine last filled in May of 2024. She is no longer taking ibuprofen, lorazepam, metformin, omeprazole, valsartan, and glimepiride (Rona says per her doctor).
--- NOTE | 2025-02-18 13:16 | MHC.CARE ---
Per ED provider Pt does not meet the criteria for a higher level of care. Consult to psychiatry cancelled and Pt will discharge home.
--- NOTE | 2025-02-18 13:49 | PC.NURSE ---
Pt up oob ambulating around room- visible agitation/irritation. Pt became agitated with this RN requesting to leave stating I'm going to leave right now give me my stuff back. LUIS Evans made aware, Cristina to bedside with this RN. Pt updated on plan of care, Section 21, and consult for psychiatry. Pt agitation increased- MD Marc made aware. MD Marc took over care of pt. CARE team at bedside to speak with patient. Per MD aMrc- pt to leave AMA, does not meet criteria for higher level of care. Pt IV line removed, belongings returned. Multiple copies of d/c paperwork and AMA paperwork given to pt upon request. AMA paperwork signed by oseas, this RN, and witness. Pt refusing d/c vitals. Pt left ED on RA with steady gait.
[2025-02-18 13:59] VITALS: BP 0/0; PULSE 0; RESP 0; TEMP -17.7; TEMP 0; O2SAT 0
== END 2025-02-18 14:00 | disposition left against medical advice (07) ==
PROVIDERS: Physician Assistant Medical; Emergency Provider Emergency Medicine Emergency Medical Services; PCP Internal Medicine
DX: F22 Delusional disorders (principal); G31.84 Mild cognitive impairment of uncertain or unknown etiology; G31.9 Degenerative disease of nervous system, unspecified; R45.1 Restlessness and agitation; R07.89 Other chest pain; E11.9 Type 2 diabetes mellitus without complications; I10 Essential (primary) hypertension; J45.909 Unspecified asthma, uncomplicated; Z53.29 Procedure and treatment not carried out because of patient's decision for other reasons; Z79.82 Long term (current) use of aspirin; Z79.02 Long term (current) use of antithrombotics/antiplatelets; Z79.899 Other long term (current) drug therapy
CPT/HCPCS: 36415; 70450; 71045; 80053; 80143; 80179; 80307; 81001; 83690; 83735; 84484; 85025; 85379; 87086; 99285; S9485

== ENCOUNTER → 2025-02-17 17:22 | Outpatient (BNV) | payer MEDICARE, MEDICAID, SELFPAY | PROVIDERS: Emergency Provider Emergency Medicine Emergency Medical Services; PCP Internal Medicine; Visit Provider Radiology Diagnostic Radiology | DX: G31.9 Degenerative disease of nervous system, unspecified (principal); R07.9 Chest pain, unspecified | CPT/HCPCS: 71045 ==